=== PATIENT | male | born 1930 | race African-American/Black ===

== ENCOUNTER 2019-06-09 16:18 | Emergency (ER) | payer MEDICARE ==
[~2019-06-09] VITALS: Ht 175.3 cm; Wt 70.0 kg
[~2019-06-09 16:18] MED LIST: HYDR-1348 PO; TRAM50TA3 PO
[2019-06-09] MEDS ORDERED: ONDANSETRON HCL 4MG/2ML INJ IV STA (16:32)
[2019-06-09 17:35] LABS: BASOPHILS % 0.7 % (0.0-2.0); EOSINOPHILS % 1.2 % (0.0-5.0); HEMATOCRIT. 31.3 % (42.0-52.0); HEMOGLOBIN. 10.6 g/dL (14.0-18.0); LYMPHOCYTES % 18.4 % (20.0-50.0); MEAN CORPUSCULAR VOLUME 88.6 fL (80.0-94.0); MEAN PLATELET VOLUME 9.2 fl (7.4-10.4); MONOCYTES % 7.5 % (2.0-8.0); NEUTROPHILS % 72.2 % (40.0-76.0); PLATELET 215 x1000/uL (130-400); RED BLOOD CELL COUNT 3.54 mill/uL (4.7-6.1); RED CELL DISTRIBUTION WIDTH 15.8 % (11.6-14.6)
[2019-06-09 17:39] LABS: CHLORIDE 105 mEq/L (98-107)
[2019-06-09 17:41] LABS: INR 1.1; PROTHROMBIN TIME 10.8 sec (9.6-11.0)
[2019-06-09] MEDS ORDERED: SODIUM CHLORIDE 0.9% 1,000 ML IV ONE (18:30)
[2019-06-09 22:00] VITALS: BP 130/58
== END 2019-06-09 23:30 | disposition home or self-care (01) ==
LOC: ER 16:18
DX: R10.32 Left lower quadrant pain (principal); C80.1 Malignant (primary) neoplasm, unspecified; C78.02 Secondary malignant neoplasm of left lung; C78.01 Secondary malignant neoplasm of right lung; I10 Essential (primary) hypertension; Z95.1 Presence of aortocoronary bypass graft
CPT/HCPCS: 36415; 71045; 74176; 80053; 83690; 84484; 85025; 85610; 93005; 96374; 99284; J2405; J7030